=== PATIENT | male | born 1995 | race Two or more races ===

== ENCOUNTER 2017-05-14 08:04 | Emergency (ER) | payer SELFPAY ==
--- NOTE | 2017-05-14 08:29 | EDM.PDOC ---
ED HPI GENERAL MEDICAL PROBLEM - General Chief Complaint: Respiratory Problem Stated Complaint: COUGH Time Seen by Provider: 05/14/17 08:14 Source of Information: Reports: Patient, RN Notes Reviewed - History of Present Illness INITIAL COMMENTS - FREE TEXT/NARRATIVE: 21-year-old male comes in with cough that has been present for about 8-10 days, worsening instead of improving. He has had some nasal and sinus congestion with this. That has gotten better. Says scratchy throat. Office become more productive of yellowish and greenish type phlegm. Been quite annoying to him. Difficult to sleep at night. Some chills no definite fever. - Related Data Allergies Allergy/AdvReac Type Severity Reaction Status Date / Time No Known Allergies Allergy Verified 05/14/17 08:12 Home Meds: Home Meds . [No Known Home Meds] 05/14/17 [History] Past Medical History - Past Health History Medical/Surgical History: Denies Medical/Surgical History Social & Family History - Tobacco Use Smoking Status *Q: Former Smoker Used Tobacco, but Quit: Yes Month Tobacco Last Used: February - Caffeine Use Caffeine Use: Reports: Coffee - Recreational Drug Use Recreational Drug Use: No ED ROS GENERAL - Review of Systems Review Of Systems: See Below Constitutional: Reports: Chills HEENT: Reports: Rhinitis, Sinus Problem, Throat Pain Respiratory: Reports: Wheezing, Cough, Sputum, Hemoptysis Cardiovascular: Reports: Chest Pain (with coughing) GI/Abdominal: Denies: Abdominal Pain, Vomiting Musculoskeletal: Reports: No Symptoms Skin: Reports: No Symptoms Neurological: Reports: Paresthesia ED EXAM, GENERAL - Physical Exam Exam: See Below General Appearance: Alert, No Apparent Distress Throat/Mouth: Normal Inspection, Normal Oropharynx Head: No: Facial Swelling Neck: Supple, Non-Tender, Full Range of Motion. No: Lymphadenopathy (L) Respiratory/Chest: No Respiratory Distress, Wheezing (mild bilateral). No: Rhonchi Cardiovascular: Regular Rate, Rhythm, Tachycardia Extremities: Normal Inspection Neurological: Alert, Oriented, No Motor/Sensory Deficits Skin Exam: Warm, Dry, Normal Color, No Rash Course - Vital Signs Last Recorded V/S: Last Vital Signs Temp 96.9 F 05/14/17 08:09 Pulse 121 H 05/14/17 08:37 Resp 18 05/14/17 08:37 BP 130/83 05/14/17 08:37 Pulse Ox 92 L 05/14/17 08:37 Departure - Departure Time of Disposition: 08:26 Disposition: Home, Self-Care 01 Condition: Fair Clinical Impression: Bronchitis Upper respiratory infection Qualifiers: URI type: unspecified URI Qualified Code(s): J06.9 - Acute upper respiratory infection, unspecified - Discharge Information Instructions: Acute Bronchitis, [id number], Upper Respiratory Infection, Adult, [id number] Referrals: PCP,None [Primary Care Provider] - Forms: ED Department Discharge Additional Instructions: vaporizer or steam as needed, continue tylenol and cough medication as needed, zpack antibiotic as prescribed, albuterol inhaler q 4 to 6 hr as needed for severe cough or wheezing
[2017-05-14 08:40] VITALS: BP 130/83
== END 2017-05-14 08:39 | disposition home or self-care (01) ==
LOC: JD.ED 08:04
DX: J40 Bronchitis, not specified as acute or chronic (principal); J06.9 Acute upper respiratory infection, unspecified; Z87.891 Personal history of nicotine dependence
CPT/HCPCS: 99283